=== PATIENT | female | born 1945 ===

== ENCOUNTER → 2018-01-17 | Outpatient (REF) | payer MEDICARE, OTHER ==
[2018-01-17 19:06] LABS: HEMATOCRIT 41.1 % (36.0-47.0); HEMOGLOBIN 13.5 g/dl (12.0-15.5); MEAN CORPUSCULAR HEMOGLOBIN 32.2 pg (27.0-33.0); MEAN CORPUSCULAR HGB CONC 32.8 g/dl (32.0-36.5); MEAN CORPUSCULAR VOLUME 98.1 fl (80.0-96.0); PLATELET COUNT, AUTOMATED 182 10^3/uL (150-450); RED BLOOD COUNT 4.19 10^6/uL (4.00-5.40); RED CELL DISTRIBUTION WIDTH 12.7 % (11.5-14.5); WHITE BLOOD COUNT 4.9 10^3/uL (4.0-10.0)
== END ==
LOC: M LABDRAWC 18:08
DX: D72.819 Decreased white blood cell count, unspecified (principal)
CPT/HCPCS: 85027

== ENCOUNTER 2021-10-16 14:44 | Emergency (ER) | payer MEDICARE, OTHER ==
[~2021-10-16] VITALS: Ht 154.9 cm; Wt 67.2 kg
[2021-10-16 14:45] VITALS: BP 141/68
[2021-10-16] MEDS ORDERED: AMLO25TA PO (14:55)
[2021-10-16] MEDS ORDERED: SIMV20TA22 PO (14:55)
== END 2021-10-16 17:15 | disposition left against medical advice (07) ==
LOC: M ED 14:44
DX: Z53.21 Procedure and treatment not carried out due to patient leaving prior to being seen by health care provider (principal)